=== PATIENT | male | born 1970 | race Caucasian/White ===

== ENCOUNTER 2017-11-04 10:39 | Emergency (ER) | payer BC ==
[2017-11-04] MEDS ORDERED: ASPIRIN 81 MG TAB.CHEW ONE (11:02)
[2017-11-04] MEDS ORDERED: ASPIRIN 81 MG TAB.CHEW PO ONE (11:02)
--- NOTE | 2017-11-04 11:04 | ERNOTE ---
Medical Problem HPI - General Chief Complaint: General Assessment Time Seen by Provider: 11/04/17 10:43 Source: patient Exam Limitations: no limitations - Immun/Allergies/Home Medications Allergies/Adverse Reactions: Allergies adhesive tape Allergy (Intermediate, Verified 11/04/17 10:47) Hives Home Medications: HOME MEDICATIONS Acetaminophen [Tylenol] 500 - 1,000 mg PO Q4H PRN 05/21/16 [Last Taken Unknown] Lisinopril/Hydrochlorothiazide [Lisinopril-Hctz 10-12.5 mg Tab] 1 each PO DAILY 05/21/16 [Last Taken 05/30/16 06:00] [place]-3 Fatty Acids/Fish Oil [Fish Oil 1,000 mg Capsule] 1 each PO DAILY [Last Taken Unknown] Simvastatin [Zocor] 40 mg PO HS 05/21/16 [Last Taken Unknown] - History of Present History Narrative: Patient had an episode of numbness and tingling in his left arm last night that lasted for perhaps 5 minutes. Patient denied any chest pain, diaphoresis or neck arm or jaw pain. The episode was moderate in severity and it occurred approximately 17 hours ago. Timing: gone now Severity: moderate Review of Systems - Review of Systems Constitutional: Present: See HPI EYE: Present: no symptoms reported ENT: Present: no symptoms reported Respiratory: Present: no symptoms reported Cardiology: Present: no symptoms reported Gastrointestinal/Abdominal: Present: no symptoms reported Genitourinary: Present: no symptoms reported Musculoskeletal: Present: no symptoms reported Skin: Present: no symptoms reported Neurological: Present: See HPI Endocrine: Present: no symptoms reported Hematologic/Lymphatic: Present: no symptoms reported Psych: Present: no symptoms reported - Patient's Past Medical History Patient History - Medical: Other Patient History - Cardiac/Respiratory: Asthma, Hypertension, Hyperlipidemia Patient History - Cancer: No Hx of Cancer Patient History - Surgical Procedures: Back Surgery, Vasectomy, Other Patient History - Other: None - Family History Father Family History - Medical: , Diabetes Type 2 Family History - Cardiac/Respiratory: Hypertension, Myocardial Infarction Grandmother-Paternal Family History - Medical: , No pertinent hx Family History - Cardiac/Respiratory: No pertinent hx Mother Family History - Medical: , No pertinent hx Family History - Cardiac/Respiratory: No pertinent hx Sister Family History - Medical: Other Family History - Cardiac/Respiratory: Myocardial Infarction - Social History Living Situations: home Abuse History: No History of abuse Psych History: No pertinent hx Physical Exam - Physical Exam General Appearance: Present: wd/wn, alert, no apparent distress Eye Exam: Normal inspection: bilateral, PERRL: bilateral Ears, Nose, Throat: Present: normal ENT inspection, H, normal pharynx Neck: Present: normal inspection, nontender Respiratory: Present: no respiratory distress, normal breath sounds, no accessory muscle use, chest nontender, lungs clear Cardiovascular/Chest: Present: regular rate, rhythm, no murmur, normal peripheral pulses Gastrointestinal/Abdominal: Present: normal bowel sounds, nontender, nondistended, soft, no organomegaly Rectal Exam: Present: deferred Back Exam: Present: normal inspection, normal range of motion Extremity Exam: Present: normal inspection, non-tender, no edema, normal range of motion Neurological Exam: Present: alert, oriented, normal mood/affect Skin Exam: Present: normal color, warm/dry Lymphatic Exam: Present: no adenopathy ED Progress - Results and Orders Patient's Lab Results:: I have reviewed the patient's lab results. - Vital Signs Patient's Vital Signs:: I have reviewed the patient's vital signs. Vital Signs: Vital Signs 11/04/17 11/04/17 10:44 10:50 Temperature 36.2 C L 36.2 C L Pulse Rate 68 68 Respiratory 12 12 Rate Blood Pressure 160/99 160/99 O2 Sat by Pulse 96 96 Oximetry - EKG EKG: NSR - X-Ray X-Ray #1 X-Ray: chest Interpretation: Reviewed by me - Progress/Reassessment Chief Complaint: General Assessment Plan - Plan Plan: Unclear etiology for the paresthesia in the left upper extremity, however his EKG lab work and chest x-ray are all unremarkable. Patient will be referred back to his family physician with it might want to consider a treadmill Cardiolite test. Departure Clinical Impression: Paresthesia - Departure Disposition: Home self-care Condition: Good Instructions: Paresthesia, [id number] Additional Instructions: If symptoms persist also discuss besides the stress test, an MRI of the cervical spine. Referrals: Gabby Matamoros MD [Primary Care Provider] -
[2017-11-04 11:21] LABS: Hematocrit 44.6 % (42.0-52.0); Hemoglobin 15.6 gm/dL (13.5-18.0); Mean Cell Volume 88.3 fl (78-100); Mean Corpuscular Hemoglobin 30.9 pg (27-31); Mean Platelet Volume 11.1 fl (6.0-9.5); Neutrophil # 4.8 K/mm3 (1.3-6.0); Neutrophil % 62.3 % (42-75.0); Platelet Count 254 K/mm3 (150-450); Red Blood Count 5.05 M/mm3 (4.7-6.0); Red Cell Distribution Width 12.3 % (11.5-14.0); White Blood Count 7.7 K/mm3 (4.0-10.5)
[2017-11-04 11:31] LABS: Prothrombin Time (Patient) 10.3 Seconds (9.0-11.0)
[2017-11-04 11:36] LABS: INR 1.03 INR (0.90-1.10); Partial Thrombolplastin Time 25.1 Seconds (24-32)
[2017-11-04 11:37] LABS: ALT 51 U/L (19-67); AST 19 U/L (0-48); Albumin * 3.7 gm/dl (3.4-5.0); Alkaline Phosphatase * 96 U/L (50-170); Anion Gap 14.7 mmol/L (6.8-13.8); Bilirubin, Total 0.3 mg/dL (0.0-1.1); Blood Urea Nitrogen 13 mg/dL (6-23); Ca. Corrected For Albumin 8.4 mg/dL (8.4-10.2); Calcium * 8.5 mg/dL (7.9-10.9); Carbon Dioxide 24.1 mmol/L (24-32.6); Chloride 103 mmol/L (97-106); Glucose * 165 mg/dL (70-110); Potassium 3.8 mmol/L (3.4-4.6); Sodium 138 mmol/L (132-142); Total Protein 7.1 gm/dL (6.2-8.2)
[2017-11-04 11:38] LABS: Troponin I Less than 0.017 ng/ml (0.00-0.10)
[2017-11-04 12:24] VITALS: BP 149/92
== END 2017-11-04 12:24 | disposition home or self-care (01) ==
LOC: ER 10:39
DX: R20.2 Paresthesia of skin (principal); E78.5 Hyperlipidemia, unspecified; I10 Essential (primary) hypertension